=== PATIENT | female | born 1965 | race American Indian/Alaskan Native ===

== ENCOUNTER 2016-09-15 08:49 | Outpatient (CLI) | payer BC ==
--- NOTE | 2016-09-16 10:28 | Mammography Report ---
BONE DENSITY STUDY: DEFINITIONS: BMD = Bone Mineral Density T-score = BMD related to mean peak bone mass of young adult (mean expressed in Standard Deviation) Z-score = Age matched BMD expressed in SD World Health Organization (WHO) Diagnostic Criteria Normal T-score > -1 SD Osteopenia T-score between -1 and -2.4 SD Osteoporosis T-score -2.5 SD or below FINDINGS: The weighted average BMD of lumbar spine L1-L4 is 1.125 with a T-score of 0.7. The weighted average BMD of hip is 1.128 with a T-score of 1.5. IMPRESSION: The patient's T-score is diagnostic for normal bone density and low relative risk for fracture. NOTE: BMD is not the only risk factor for fracture; also consider factors such as the patient's age, risk of falling, previous osteoporotic fracture, family history of osteoporotic fractures, current smoker, and low body weight. Cm's triangle is a region of interest in femur, predominantly of trabecular bone. It is not a true anatomic site, and ISCD does not recommend its use clinically.
== END 2016-09-15 08:50 | disposition home or self-care (01) ==
LOC: MAMMO 08:49
PROVIDERS: ATTEND Obstetrics & Gynecology Gynecology
DX: Z13.820 Encounter for screening for osteoporosis (principal)
CPT/HCPCS: 77080

== ENCOUNTER 2016-10-16 08:32 | Outpatient (CLI) | payer BC ==
[2016-10-16 09:44] LABS: Hematocrit 37.1 % (30.3-42.9); Hemoglobin 12.1 gm/dl (10.1-14.3); Mean Corpuscular HGB Conc 33 % (30-34); Mean Corpuscular Hemoglobin 29 pg (28-32); Mean Corpuscular Volume 89 fl (79-97); Platelet Count 248 K/mm3 (140-440); Red Blood Count 4.15 M/mm3 (3.65-5.03); Red Cell Distribution Width 12.6 % (13.2-15.2); White Blood Count 6.2 K/mm3 (4.5-11.0)
[2016-10-16 10:03] LABS: Erythrocyte Sedimentation Rate 25 mm/Hr (0-20)
[2016-10-16 10:08] LABS: Alanine Aminotransferase 20 units/L (7-56); Albumin 4.2 g/dL (3.9-5); Albumin/Globulin Ratio 1.4 %; Alkaline Phosphatase 65 units/L (35-129); Anion Gap 17 mmol/L; BUN/Creatinine Ratio 18.57; Bilirubin,Total 0.2 mg/dL (0.1-1.2); Blood Urea Nitrogen 13 mg/dL (7-17); Calcium 9.8 mg/dL (8.4-10.2); Carbon Dioxide 25 mmol/L (22-30); Chloride 103.2 mmol/L (98-107); Cholesterol 203 mg/dL (50-199); Glucose 130 mg/dL (65-100); HDL Cholesterol 71 mg/dL (40-59); LDL Cholesterol,Direct 111 mg/dL (50-130); Potassium 4.1 mmol/L (3.6-5.0); Sodium 141 mmol/L (137-145); Total Protein 7.2 g/dL (6.3-8.2); Triglycerides 109 mg/dL (2-149)
[2016-10-18 17:47] LABS: Vitamin D, 25-OH, Total 11 ng/mL (30-100)
== END 2016-10-16 08:33 | disposition home or self-care (01) ==
LOC: LAB 08:32
PROVIDERS: ATTEND Internal Medicine Hematology & Oncology
DX: E11.9 Type 2 diabetes mellitus without complications (principal); I95.9 Hypotension, unspecified; N95.1 Menopausal and female climacteric states; L65.9 Nonscarring hair loss, unspecified
CPT/HCPCS: 36415; 80053; 80061; 82306; 82607; 83036; 84439; 84443; 85027; 85652

== ENCOUNTER 2016-10-29 07:02 | Outpatient (CLI) | payer BC ==
[2016-10-29 08:30] LABS: Blood Urea Nitrogen 15 mg/dL (7-17)
--- NOTE | 2016-10-29 11:33 | Magnetic Resonance Report ---
MRI of the right and left hips without contrast. History: Bilateral hip pain. Findings: Coronal T1 weighted, T2-weighted, inversion recovery images, and axial and sagittal proton density images with fat saturation were used in the study. Findings: The contour of the femoral heads is normal bilaterally. The joint spaces are also normal. There is no signal abnormality within the femoral heads or periarticular region of the acetabulum. There is no evidence of joint effusion. No soft tissue masses or fluid collections are seen. Impression: Normal study. There is no evidence of avascular necrosis or other significant findings.
--- NOTE | 2016-10-29 11:40 | Magnetic Resonance Report ---
MRI of the lumbar spine with and without contrast. History: Low back pain. Procedure: Sagittal T1-weighted, T2-weighted, inversion recovery images, axial T1 and T2-weighted images, and post gadolinium sagittal and axial T1-weighted images with fat saturation. Findings: The vertebral body heights are normal. A transitional vertebra is present with lumbarization of S1. Alignment is normal throughout the lumbar spine. The signal within the intervertebral discs appears normal. There is no evidence of disc bulge or herniation. No spinal stenosis is seen. The facet joints appear normal. No intradural abnormalities are seen. After contrast, there are no areas of abnormal enhancement. Impression: Normal study.
== END 2016-10-29 07:03 | disposition home or self-care (01) ==
LOC: MRI 07:02
PROVIDERS: ATTEND Internal Medicine Hematology & Oncology
DX: M25.551 Pain in right hip (principal); M54.5 Low back pain; L65.9 Nonscarring hair loss, unspecified; E11.9 Type 2 diabetes mellitus without complications; I10 Essential (primary) hypertension; Z90.710 Acquired absence of both cervix and uterus
CPT/HCPCS: 36415; 72158; 73721; 82565; 84520; A9577

== ENCOUNTER 2016-12-29 07:15 | Emergency (ER) | payer OTHER, BC ==
[2016-12-29 07:29] VITALS: BP 150/86
[2016-12-29] MEDS ORDERED: MOTRIN PO ONE (07:58)
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
--- NOTE | 2016-12-29 09:04 | XRay Report ---
LUMBOSACRAL SPINE, 3 VIEWS: History: Back pain Findings: The vertebral bodies, disk spaces and posterior elements are intact. No compression deformity or malalignment. The SI joints are symmetric and unremarkable. Impression: 1. No evidence for acute injury to the lumbar spine.
== END 2016-12-29 09:11 | disposition home or self-care (01) ==
LOC: ED 07:15
DX: S39.012A Strain of muscle, fascia and tendon of lower back, initial encounter (principal); S13.4XXA Sprain of ligaments of cervical spine, initial encounter; I10 Essential (primary) hypertension; E11.9 Type 2 diabetes mellitus without complications; Z88.8 Allergy status to other drugs, medicaments and biological substances; V49.49XA Driver injured in collision with other motor vehicles in traffic accident, initial encounter; Y93.89 Activity, other specified; Y99.8 Other external cause status; Y92.488 Other paved roadways as the place of occurrence of the external cause
CPT/HCPCS: 72072; 72100

== ENCOUNTER 2017-07-06 09:12 | Emergency (ER) | payer BC ==
[2017-07-06 10:10] VITALS: BP 164/94
--- NOTE | 2017-07-06 13:58 | Emergency Department Report ---
ED ENT HPI - General Chief complaint: Upper Respiratory Infection Stated complaint: ALLERGIC REACTION Time Seen by Provider: 07/06/17 13:46 Source: patient Mode of arrival: Ambulatory Limitations: No Limitations - History of Present Illness Initial comments: 51-year-old female past medical history diabetes, hypertension presents with complaint 8 days of left-sided lower lip swelling worsening, painful to touch, swollen. Patient also complaining of left sided cheek discomfort and sinus congestion. Patient is awake alert and oriented 3 no audible wheezing or stridor fully lucid. Denies any significant fever or chills. Denies any purulent drainage from mouth nose or ears. Denies sore throat or earache. Does state the pain radiates up the left ear. States she has sinus pressure and discomfort. Denies purulent drainage from lip. MD complaint: other Onset/Timin -: days(s) Location: lower lip Severity: moderate Severity scale (0 -10): 6 Quality: aching Improves with: none Worsens with: none - Related Data Home Medications Medication Instructions Recorded Confirmed Last Taken Metformin HCl [metFORMIN ER] 500 mg PO BID 07/11/14 06/24/15 06/23/15 20:00 500 MG Metoprolol [Lopressor TAB] 1 tab PO BID 09/12/14 06/24/15 06/24/15 04:30 1 TAB Previous Rx's Medication Instructions Recorded Last Taken Type Cyclobenzaprine HCl [Flexeril 5 MG 5 mg PO TID #15 tab 12/29/16 Unknown Rx TAB] Ibuprofen [Motrin 600 MG tab] 600 mg PO Q8H PRN #15 tablet 12/29/16 Unknown Rx Amoxicillin/K Clav Tab [Augmentin 1 tab PO Q12HR #14 tab 07/06/17 Unknown Rx 875 mg] Ibuprofen [Motrin] 800 mg PO Q8HR PRN #30 tablet 07/06/17 Unknown Rx Loratadine [Claritin] 10 mg PO DAILY PRN #30 tablet 07/06/17 Unknown Rx Valacyclovir HCl [Valtrex] 2,000 mg PO Q12H #4 tablet 07/06/17 Unknown Rx Allergies Allergy/AdvReac Type Severity Reaction Status Date / Time Iodinated Contrast- Oral and Allergy Severe Angioedema; Verified 12/29/16 07:24 IV Dye N&V [Iodinated Contrast Media - IV Dye] ED Dental HPI - General Chief complaint: Upper Respiratory Infection Stated complaint: ALLERGIC REACTION Time Seen by Provider: 07/06/17 13:46 Source: patient Mode of arrival: Ambulatory Limitations: No Limitations - Related Data Home Medications Medication Instructions Recorded Confirmed Last Taken Metformin HCl [metFORMIN ER] 500 mg PO BID 07/11/14 06/24/15 06/23/15 20:00 500 MG Metoprolol [Lopressor TAB] 1 tab PO BID 09/12/14 06/24/15 06/24/15 04:30 1 TAB Previous Rx's Medication Instructions Recorded Last Taken Type Cyclobenzaprine HCl [Flexeril 5 MG 5 mg PO TID #15 tab 12/29/16 Unknown Rx TAB] Ibuprofen [Motrin 600 MG tab] 600 mg PO Q8H PRN #15 tablet 12/29/16 Unknown Rx Amoxicillin/K Clav Tab [Augmentin 1 tab PO Q12HR #14 tab 07/06/17 Unknown Rx 875 mg] Ibuprofen [Motrin] 800 mg PO Q8HR PRN #30 tablet 07/06/17 Unknown Rx Loratadine [Claritin] 10 mg PO DAILY PRN #30 tablet 07/06/17 Unknown Rx Valacyclovir HCl [Valtrex] 2,000 mg PO Q12H #4 tablet 07/06/17 Unknown Rx Allergies Allergy/AdvReac Type Severity Reaction Status Date / Time Iodinated Contrast- Oral and Allergy Severe Angioedema; Verified 12/29/16 07:24 IV Dye N&V [Iodinated Contrast Media - IV Dye] ED Review of Systems ROS: Stated complaint: ALLERGIC REACTION Other details as noted in HPI Constitutional: denies: chills, fever Eyes: denies: eye pain, eye discharge, vision change ENT: as per HPI, congestion (bilateral sinus tenderness and congestion), other ( left lower lip swelling 8 days, painful). denies: ear pain, throat pain Respiratory: denies: cough, shortness of breath, wheezing Cardiovascular: denies: chest pain, palpitations Endocrine: no symptoms reported Gastrointestinal: denies: abdominal pain, nausea, diarrhea Genitourinary: denies: urgency, dysuria, discharge Musculoskeletal: denies: back pain, joint swelling, arthralgia Skin: denies: rash, lesions Neurological: denies: headache, weakness, paresthesias Psychiatric: denies: anxiety, depression Hematological/Lymphatic: denies: easy bleeding, easy bruising ED Past Medical Hx - Past Medical History Hx Hypertension: Yes Hx Congestive Heart Failure: No Hx Diabetes: Yes (pt states she is pre diabetic) Hx Asthma: No Hx COPD: No Hx HIV: No - Surgical History Additional Surgical History: . hysterectomy - Social History Smoking Status: Never Smoker Substance Use Type: None - Medications Home Medications: Home Medications Medication Instructions Recorded Confirmed Last Taken Type Metformin HCl [metFORMIN ER] 500 mg PO BID 07/11/14 06/24/15 06/23/15 20:00 History 500 MG Metoprolol [Lopressor TAB] 1 tab PO BID 09/12/14 06/24/15 06/24/15 04:30 History 1 TAB Cyclobenzaprine HCl [Flexeril 5 MG 5 mg PO TID #15 tab 12/29/16 Unknown Rx TAB] Ibuprofen [Motrin 600 MG tab] 600 mg PO Q8H PRN #15 tablet 12/29/16 Unknown Rx Amoxicillin/K Clav Tab [Augmentin 1 tab PO Q12HR #14 tab 07/06/17 Unknown Rx 875 mg] Ibuprofen [Motrin] 800 mg PO Q8HR PRN #30 tablet 07/06/17 Unknown Rx Loratadine [Claritin] 10 mg PO DAILY PRN #30 tablet 07/06/17 Unknown Rx Valacyclovir HCl [Valtrex] 2,000 mg PO Q12H #4 tablet 07/06/17 Unknown Rx ED Physical Exam - General Limitations: No Limitations General appearance: alert, in no apparent distress - Head Head exam: Present: atraumatic, normocephalic - Eye Eye exam: Present: normal appearance, PERRL, EOMI - ENT ENT exam: Present: mucous membranes moist, other (bilateral frontal sinus tenderness on percussion) - Expanded ENT Exam Expanded Mouth exam: Present: other (left lower lip swelling. Possible abscess) Throat exam: Positive: normal inspection (oropharynx is open and patent no intraoral lesions) - Neck Neck exam: Present: normal inspection, full ROM - Respiratory Respiratory exam: Present: normal lung sounds bilaterally. Absent: respiratory distress - Cardiovascular Cardiovascular Exam: Present: regular rate, normal rhythm. Absent: systolic murmur, diastolic murmur, rubs, gallop - GI/Abdominal GI/Abdominal exam: Present: soft, normal bowel sounds - Extremities Exam Extremities exam: Present: normal inspection - Back Exam Back exam: Present: normal inspection - Neurological Exam Neurological exam: Present: alert, oriented X3 - Psychiatric Psychiatric exam: Present: normal affect, normal mood - Skin Skin exam: Present: warm, dry, intact, normal color. Absent: rash ED Course Vital Signs 07/06/17 10:04 Temperature 99.1 F Pulse Rate 77 Respiratory 20 Rate Blood Pressure 164/94 O2 Sat by Pulse 98 Oximetry ED Medical Decision Making - Medical Decision Making A/P: Lower lip infection, sinusitis 1-case discussed with Dr. Carmona also examine the patient. As per Dr. Carmona this is herpetic concha and patient should be treated for oral herpes infection. Dr. Carmona and instructed me to not perform incision and drainage. He informed the patient to use warm compresses. 2-as patient does have sinus tenderness and congestion will give her antihistamines and course of Augmentin 3-follow up with primary care doctor and ENT Critical care attestation.: If time is entered above; I have spent that time in minutes in the direct care of this critically ill patient, excluding procedure time. ED Disposition Clinical Impression: Infection of lip Sinusitis Qualifiers: Sinusitis location: other Chronicity: acute Recurrence: non-recurrent Qualified Code(s): J01.80 - Other acute sinusitis Disposition: DC- TO HOME OR SELFCARE Is pt being admited?: No Does the pt Need Aspirin: No Condition: Stable Instructions: Sinusitis (ED), Oral Herpes Simplex Virus Infections (ED), Acute Bacterial Rhinosinusitis (ED) Prescriptions: Amoxicillin/K Clav Tab [Augmentin 875 mg] 1 tab PO Q12HR #14 tab Ibuprofen [Motrin] 800 mg PO Q8HR PRN #30 tablet PRN Reason: Pain Loratadine [Claritin] 10 mg PO DAILY PRN #30 tablet PRN Reason: Congestion Valacyclovir HCl [Valtrex] 2,000 mg PO Q12H #4 tablet Referrals: [facility] [Outside] - 3-5 Days [facility] [Outside] - 3-5 Days [facility] [Provider Group] - [facility] - 3-5 Days Forms: Work/School Release Form(ED) Time of Disposition: 15:02
[2017-07-06] MEDS ORDERED: BENADRYL PO ONE (14:11)
[2017-07-06] MEDS ORDERED: MOTRIN PO ONE (14:11)
[2017-07-06] MEDS ORDERED: XYLOCAINE 2% INFILTRATI ONE (14:11)
--- NOTE | 2017-07-06 14:53 | Cat Scan Report ---
CT SINUSES WITHOUT CONTRAST: HISTORY: Left sided sinus pain. TECHNIQUE: Helical CT with sagittal and coronal reformatted images. The visualized sinus groups are well aerated. The ostiomeatal units are normal and patent bilaterally. The nasal septum is midline. The nasal turbinates are symmetrical. There is no evidence of blaine bullosa or sinusitis. CONCLUSION: Negative sinus CT.
== END 2017-07-06 15:44 | disposition home or self-care (01) ==
LOC: ED 09:12
DX: K13.0 Diseases of lips (principal); J01.80 Other acute sinusitis; I10 Essential (primary) hypertension; E11.9 Type 2 diabetes mellitus without complications; Z88.8 Allergy status to other drugs, medicaments and biological substances
CPT/HCPCS: 70486

== ENCOUNTER 2017-07-29 13:40 | Outpatient (CLI) | payer BC ==
--- NOTE | 2017-07-29 18:36 | XRay Report ---
FINAL REPORT PROCEDURE: XR SPINE LUMBOSACRAL 4+V TECHNIQUE: Lumbar spine radiographs, including AP, lateral, oblique, and lumbosacral spot views. HISTORY: LOWER BACK PAIN COMPARISON: No prior studies are available for comparison. FINDINGS: The vertebral body heights and alignment are maintained. Degenerative disc changes are noted predominantly in the lower thoracic spine. No scoliosis. Disc spaces in the lumbar spine are preserved. IMPRESSION: No acute abnormality. Mild degenerative changes as above
--- NOTE | 2017-07-29 18:37 | XRay Report ---
FINAL REPORT PROCEDURE: XR HIPS BILAT 2V W/PELVIS TECHNIQUE: Bilateral hip radiographs, 2 views each, including AP view of the pelvis. HISTORY: B/L HIP/LOWER BACK PAIN COMPARISON: No prior studies are available for comparison. FINDINGS: No acute fracture is seen. Hip joint spaces are preserved. No focal osseous lesion is seen. Sacroiliac joints are unremarkable in appearance. IMPRESSION: Unremarkable exam
== END 2017-07-29 13:41 | disposition home or self-care (01) ==
LOC: XRAY 13:40
PROVIDERS: ATTEND Internal Medicine Hematology & Oncology
DX: M47.896 Other spondylosis, lumbar region (principal); M25.551 Pain in right hip; M25.552 Pain in left hip
CPT/HCPCS: 72110; 73521

== ENCOUNTER 2018-04-27 11:48 | Outpatient (CLI) | payer BC ==
--- NOTE | 2018-04-27 12:12 | XRay Report ---
AP ABDOMEN: HISTORY: Pain. There is moderate stool throughout the colon and rectum. The abdominal gas pattern is unremarkable. No masses or organomegaly is identified and there is no gross evidence of free air or fluid. No significant soft tissue calcifications are noted. IMPRESSION: Fecal retention.
== END 2018-04-27 11:49 | disposition home or self-care (01) ==
LOC: XRAY 11:48
PROVIDERS: ATTEND Internal Medicine Hematology & Oncology
DX: K59.00 Constipation, unspecified (principal); E11.9 Type 2 diabetes mellitus without complications; I10 Essential (primary) hypertension; E78.00 Pure hypercholesterolemia, unspecified
CPT/HCPCS: 74018

== ENCOUNTER 2018-08-10 14:11 | Outpatient (CLI) | payer BC ==
[2018-08-10 14:44] LABS: Blood Urea Nitrogen 16 mg/dL (7-17)
== END 2018-08-10 14:12 | disposition home or self-care (01) ==
LOC: LAB 14:11
PROVIDERS: ATTEND Internal Medicine Hematology & Oncology
DX: R19.00 Intra-abdominal and pelvic swelling, mass and lump, unspecified site (principal); I10 Essential (primary) hypertension; E78.00 Pure hypercholesterolemia, unspecified; E11.9 Type 2 diabetes mellitus without complications; Z90.710 Acquired absence of both cervix and uterus
CPT/HCPCS: 36415; 82565; 84520

== ENCOUNTER 2018-08-16 07:00 | Outpatient (CLI) | payer BC ==
--- NOTE | 2018-08-16 14:38 | Magnetic Resonance Report ---
MRI OF THE BRAIN WITHOUT CONTRAST: HISTORY: M62.838, muscle spasm PROCEDURE: Multiplanar, multisequence MR imaging of the brain without IV contrast was performed. FINDINGS: Minimal nonspecific T2 signal abnormalities are identified in the white matter. Otherwise, the brain parenchyma signal intensity and its handy white interface are within normal limits on all sequences. No evidence for acute ischemia, hemorrhage or mass. No chronic infarct or extra-axial fluid collection. The midline structures are central. The basal cisterns are patent. Normal ventricular size. The orbital cavities and sella turcica demonstrate no abnormality. The visualized paranasal sinuses and mastoid air cells are well aerated. IMPRESSION: Unremarkable non-enhanced MRI of the brain.
--- NOTE | 2018-08-16 14:40 | Magnetic Resonance Report ---
MR CERVICAL SPINE WITHOUT CONTRAST HISTORY: M62.838, muscle spasm. TECHNIQUE: Axial T2 and T2 gradient. Sagittal T1, T2 and STIR. COMPARISON: None. FINDINGS: The cervical spinal cord is normal size and signal intensity throughout. No abnormal intramedullary signal is detected. Normal height and alignment of the cervical vertebral bodies. Normal bone marrow signal. The intervertebral disc spaces are within normal limits. The facet joints are in appropriate relationship. No significant joint pathology or hypertrophic changes. The paraspinal soft tissues are within normal limits. C2-3: Normal. C3-4: Normal. C4-5: Normal. C5-6: Normal. C6-7: Normal. C7-T1: Normal. IMPRESSION: MRI of cervical spine within normal limits.
== END 2018-08-16 07:01 | disposition home or self-care (01) ==
LOC: MRI 07:00
PROVIDERS: ATTEND Internal Medicine Hematology & Oncology
DX: M62.838 Other muscle spasm (principal); R19.07 Generalized intra-abdominal and pelvic swelling, mass and lump; E78.00 Pure hypercholesterolemia, unspecified; I10 Essential (primary) hypertension; E11.9 Type 2 diabetes mellitus without complications
CPT/HCPCS: 70551; 72141

== ENCOUNTER 2018-08-17 09:09 | Outpatient (CLI) | payer BC ==
--- NOTE | 2018-08-17 11:55 | Cat Scan Report ---
CT ABDOMEN WITHOUT CONTRAST HISTORY: Generalized intra-abdominal and pelvic swelling, mass lump. Evaluate for aneurysm. TECHNIQUE: Helical CT without IV contrast. Sagittal and coronal reformatted images. The patient reported an IV contrast allergy so IV contrast was not administered. FINDINGS: Compared to the CT of abdomen and pelvis with contrast dated 10/01/14. The liver is normal size and attenuation. No obvious parenchymal disease or mass. The biliary system, pancreas, spleen, kidneys and adrenal glands are unremarkable. The aorta is within normal limits. No aneurysm. There is moderate stool throughout the length of the colon. Small bowel loops are grossly normal. Normal appendix. No evidence for suspicious mass, adenopathy or fluid collection. The bony structures are within normal limits. IMPRESSION: No suspicious mass, adenopathy or fluid collection is identified. Normal aorta. Constipation.
== END 2018-08-17 09:10 | disposition home or self-care (01) ==
LOC: CT 09:09
PROVIDERS: ATTEND Internal Medicine Hematology & Oncology
DX: K59.00 Constipation, unspecified (principal); M62.838 Other muscle spasm; E11.9 Type 2 diabetes mellitus without complications; E78.00 Pure hypercholesterolemia, unspecified; I10 Essential (primary) hypertension; Z90.710 Acquired absence of both cervix and uterus
CPT/HCPCS: 74150

== ENCOUNTER 2018-09-13 08:39 | Outpatient (CLI) | payer BC ==
--- NOTE | 2018-09-13 11:52 | Ultrasound Report ---
ULTRASOUND ABDOMEN COMPLETE: TECHNIQUE: Transabdominal ultrasound with color Doppler interrogation. HISTORY: Other specified symptoms and signs involving the circulatory and. COMPARISON: none. FINDINGS: LIVER: Normal. BILIARY SYSTEM: Normal. PANCREAS: Normal. SPLEEN: Normal. KIDNEYS: Normal. AORTA/IVC: Normal. ASCITES: None. IMPRESSION: Unremarkable exam.
== END 2018-09-13 08:40 | disposition home or self-care (01) ==
LOC: US 08:39
PROVIDERS: ATTEND Internal Medicine Hematology & Oncology
DX: R09.89 Other specified symptoms and signs involving the circulatory and respiratory systems (principal); R52 Pain, unspecified; E11.9 Type 2 diabetes mellitus without complications; E78.00 Pure hypercholesterolemia, unspecified; I10 Essential (primary) hypertension; Z90.710 Acquired absence of both cervix and uterus
CPT/HCPCS: 76700

== ENCOUNTER 2018-12-30 10:17 | Outpatient (CLI) | payer BC ==
--- NOTE | 2018-12-30 11:12 | XRay Report ---
CHEST 2 VIEWS INDICATION: Cough. COMPARISON: 08/06/2008. FINDINGS: PA and lateral chest radiographs redemonstrate normal cardiomediastinal silhouette. Clear lungs. Stable bones, including slight lower thoracic spine degenerative changes. CONCLUSION: No acute disease in the chest, stable. Thank you for the opportunity to participate in this patient's care.
== END 2018-12-30 10:18 | disposition home or self-care (01) ==
LOC: XRAY 10:17
PROVIDERS: ATTEND Internal Medicine Hematology & Oncology
DX: R05 Cough (principal); E11.9 Type 2 diabetes mellitus without complications; E78.00 Pure hypercholesterolemia, unspecified; I10 Essential (primary) hypertension
CPT/HCPCS: 71046

== ENCOUNTER 2019-01-08 14:08 | Emergency (ER) | payer BC ==
--- NOTE | 2019-01-08 14:21 | Event Note ---
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 Further treatment and workup at subsequent clinical providers discretion. Patient/guardian urged not to elope from the ED as their condition may be serious if not clinically assessed and managed. Initial orders include: UA
[2019-01-08 16:25] LABS: Bilirubin,Urine NEG (Negative); Blood,Urine NEG (Negative); Color,Urine Colorless (Yellow); Protein,Urine <15 mg/dL mg/dL (Negative); Urobilinogen,Urine < 2.0 mg/dL (<2.0); WBC,Urine < 1.0 /HPF (0.0-6.0)
--- NOTE | 2019-01-08 20:24 | Ultrasound Report ---
PROCEDURE: US PELVIC COMPLETE TECHNIQUE: Real-time transabdominal sonography in multiple planes of the pelvis was performed. The p elvic structures, especially the ovaries, were not optimally visualized. Transvaginal sonography was then performed to better evaluate the structures and/or abnormalities described below with image docu mentation. HISTORY: vaginal bleeding COMPARISONS: None . FINDINGS: Ureters and ovaries are not visualized. There is no evidence of any cystic lesion. IMPRESSION: Uterus and ovaries are not visualized consistent with known history of complete hysterec aki. Otherwise negative study. This document is electronically signed by Neftali Rush MD., January 08 2019 08:23:04 PM ET
--- NOTE | 2019-01-08 20:26 | Ultrasound Report ---
PROCEDURE: US TRANSVAGINAL TECHNIQUE: Real-time transvaginal sonography in multiple planes of the pelvis was performed with live ge documentation. HISTORY: vaginal bleeding COMPARISONS: None . FINDINGS: Ureters and ovaries are not visualized. There is no evidence of any cystic lesion. IMPRESSION: Uterus and ovaries are not visualized consistent with known history of complete hysterec aki. Otherwise negative study. This document is electronically signed by Neftali Rush MD., January 08 2019 08:23:57 PM ET
--- NOTE | 2019-01-08 21:07 | Emergency Department Report ---
ED Female HPI - General Chief complaint: Vaginal Bleeding Stated complaint: SPOT OF BLOOD IN UNDERWEAR Time Seen by Provider: 01/08/19 14:18 Source: patient Mode of arrival: Ambulatory Limitations: No Limitations - History of Present Illness Initial comments: Physical 3-year-old -[place] female with a past medical history of a total hysterectomy some years ago. Judgment department complaining of vaginal spotting 2, first episode was Wednesday she noticed when she wiped and noticed again earlier today. She reports this is not coming from her urethra or her rectum. She states that she is 100%. She was coming from the vaginal area. She cannot find the cause. Reports no pain or trauma. Denies any vaginal discharge, rashes, suspicion of an STD MD Complaint: vaginal bleeding Radiation: non-radiating Severity scale (0 -10): 0 Improves with: none Worsens with: none Are you Now?: No Associated Symptoms: vaginal bleeding. denies: nausea/vomiting, fever/chills, loss of appetite, dysuria, rash - Related Data Home Medications Medication Instructions Recorded Confirmed Last Taken Metformin HCl [metFORMIN ER] 500 mg PO BID 07/11/14 06/24/15 06/23/15 20:00 500 MG Metoprolol [Lopressor TAB] 1 tab PO BID 09/12/14 06/24/15 06/24/15 04:30 1 TAB Previous Rx's Medication Instructions Recorded Last Taken Type Cyclobenzaprine HCl [Flexeril 5 MG 5 mg PO TID #15 tab 12/29/16 Unknown Rx TAB] Ibuprofen [Motrin 600 MG tab] 600 mg PO Q8H PRN #15 tablet 12/29/16 Unknown Rx Amoxicillin/K Clav Tab [Augmentin 1 tab PO Q12HR #14 tab 07/06/17 Unknown Rx 875 mg] Ibuprofen [Motrin] 800 mg PO Q8HR PRN #30 tablet 07/06/17 Unknown Rx Loratadine [Claritin] 10 mg PO DAILY PRN #30 tablet 07/06/17 Unknown Rx Valacyclovir HCl [Valtrex] 2,000 mg PO Q12H #4 tablet 07/06/17 Unknown Rx Allergies Allergy/AdvReac Type Severity Reaction Status Date / Time Iodinated Contrast- Oral and Allergy Severe Angioedema; Verified 01/08/19 14:11 IV Dye N&V [Iodinated Contrast Media - IV Dye] ED Review of Systems ROS: Stated complaint: SPOT OF BLOOD IN UNDERWEAR Other details as noted in HPI Comment: All other systems reviewed and negative ED Past Medical Hx - Past Medical History Hx Hypertension: Yes Hx Congestive Heart Failure: No Hx Diabetes: Yes Hx Asthma: No Hx COPD: No Hx HIV: No - Surgical History Additional Surgical History: . hysterectomy - Social History Smoking Status: Never Smoker Substance Use Type: None - Medications Home Medications: Home Medications Medication Instructions Recorded Confirmed Last Taken Type Metformin HCl [metFORMIN ER] 500 mg PO BID 07/11/14 06/24/15 06/23/15 20:00 History 500 MG Metoprolol [Lopressor TAB] 1 tab PO BID 09/12/14 06/24/15 06/24/15 04:30 History 1 TAB Cyclobenzaprine HCl [Flexeril 5 MG 5 mg PO TID #15 tab 12/29/16 Unknown Rx TAB] Ibuprofen [Motrin 600 MG tab] 600 mg PO Q8H PRN #15 tablet 12/29/16 Unknown Rx Amoxicillin/K Clav Tab [Augmentin 1 tab PO Q12HR #14 tab 07/06/17 Unknown Rx 875 mg] Ibuprofen [Motrin] 800 mg PO Q8HR PRN #30 tablet 07/06/17 Unknown Rx Loratadine [Claritin] 10 mg PO DAILY PRN #30 tablet 07/06/17 Unknown Rx Valacyclovir HCl [Valtrex] 2,000 mg PO Q12H #4 tablet 07/06/17 Unknown Rx ED Physical Exam - General Limitations: No Limitations General appearance: alert, in no apparent distress - Head Head exam: Present: atraumatic, normocephalic - Eye Eye exam: Present: normal appearance - ENT ENT exam: Present: mucous membranes moist - Neck Neck exam: Present: normal inspection - Respiratory Respiratory exam: Present: normal lung sounds bilaterally. Absent: respiratory distress - Cardiovascular Cardiovascular Exam: Present: regular rate, normal rhythm. Absent: systolic murmur, diastolic murmur, rubs, gallop - GI/Abdominal GI/Abdominal exam: Present: soft, normal bowel sounds - Rectal Rectal exam: Present: normal inspection - External exam: Present: normal external exam Speculum exam: Present: normal speculum exam Bi-manual exam: Present: normal bi-manual exam - Extremities Exam Extremities exam: Present: normal inspection, full ROM, normal capillary refill - Back Exam Back exam: Present: normal inspection. Absent: CVA tenderness (R), CVA tenderness (L) - Neurological Exam Neurological exam: Present: alert, oriented X3, CN II-XII intact, normal gait - Psychiatric Psychiatric exam: Present: normal affect, normal mood - Skin Skin exam: Present: warm, dry, intact, normal color. Absent: rash ED Course Vital Signs 01/08/19 14:19 Temperature 97.9 F Pulse Rate 66 Respiratory 18 Rate Blood Pressure 177/97 O2 Sat by Pulse 100 Oximetry ED Medical Decision Making - Medical Decision Making 53-year-old female with a hysterectomy. Pain free with reported vaginal bleeding. No hematuria on examination. Ultrasound shows no obvious causes of vaginal bleeding. She reports having had some pain quadrant, almost not present. No bloating. Abdomen is soft. She is having normal digestion. No presyncope, no fevers, chills, sweats. No dysuria, no hematuria, no hematochezia. She reports no weight loss or fevers. Discussed the need to follow with QUALITY CONTROL ASSISTANT for reevaluation of this vaginal bleeding which further conditions may be made to rest, refrain from sexual activity until she follows up. We will these lesions were appreciated on her pelvic examination no suspicion for any STDs Critical care attestation.: If time is entered above; I have spent that time in minutes in the direct care of this critically ill patient, excluding procedure time. ED Disposition Clinical Impression: Vaginal bleeding Disposition: DC-01 TO HOME OR SELFCARE Is pt being admited?: No Does the pt Need Aspirin: No Condition: Stable Additional Instructions: Completed should've HER QUALITY CONTROL ASSISTANT as we discussed to further evaluate for vaginal spotting. Ultrasound and urinalysis were normal. Referrals: PEPPER CORREIA MD [Primary Care Provider] - 3-5 Days
[2019-01-08 21:14] VITALS: BP 175/88
== END 2019-01-08 21:23 | disposition home or self-care (01) ==
LOC: ED 14:08 → EEVIPCON 14:08 → ED 21:23
DX: N93.9 Abnormal uterine and vaginal bleeding, unspecified (principal); I10 Essential (primary) hypertension; E11.9 Type 2 diabetes mellitus without complications; Z90.710 Acquired absence of both cervix and uterus; Z79.899 Other long term (current) drug therapy; Z91.041 Radiographic dye allergy status
CPT/HCPCS: 76830; 76856; 81001

== ENCOUNTER 2019-01-10 07:24 | Outpatient (CLI) | payer BC ==
[2019-01-10 10:00] LABS: Blood Urea Nitrogen 20 mg/dL (7-17)
--- NOTE | 2019-01-10 11:36 | Magnetic Resonance Report ---
MR MRA/MRV ABDOMEN WITH AND WITHOUT CONTRAST HISTORY: Abdominal pain. TECHNIQUE: Multisequence, multiplanar MRI. 3-dimensional MRA following IV gadolinium. Three-dimensional reconstructed images. FINDINGS: Heart size is normal. The visualized thoracic and abdominal aorta are normal caliber throughout. There is no evidence for atherosclerotic disease, stenosis, dissection or aneurysm. The celiac axis, superior mesenteric artery, inferior mesenteric artery and bilateral single renal arteries are widely patent with less than 20% stenosis. The visualized iliac veins, IVC, portal venous system and hepatic veins are widely patent. Signal characteristics of the abdominal viscera are within normal limits. No mass, inflammation or ascites. IMPRESSION: Normal MRA/MRV of the abdomen.
== END 2019-01-10 07:25 | disposition home or self-care (01) ==
LOC: MRI 07:24
PROVIDERS: ATTEND Internal Medicine Hematology & Oncology
DX: R19.8 Other specified symptoms and signs involving the digestive system and abdomen (principal); I10 Essential (primary) hypertension; E78.00 Pure hypercholesterolemia, unspecified; E11.9 Type 2 diabetes mellitus without complications; Z90.710 Acquired absence of both cervix and uterus
CPT/HCPCS: 36415; 82565; 84520; C8902; 74185

== ENCOUNTER 2021-08-18 12:16 | Outpatient (CLI) | payer OTHER ==
--- NOTE | 2021-08-18 13:54 | XRay Report ---
CHEST 2 VIEWS INDICATION / CLINICAL INFORMATION: PAIN. COMPARISON: 12/30/2018 FINDINGS: SUPPORT DEVICES: None. HEART / MEDIASTINUM: No significant abnormality. LUNGS / PLEURA: No significant pulmonary or pleural abnormality. No pneumothorax. ADDITIONAL FINDINGS: No significant additional findings. IMPRESSION: 1. No acute findings. Signer Name: Wai Berger MD Signed: 08/18/2021 1:50 PM Workstation Name: [id number]
--- NOTE | 2021-08-18 14:49 | XRay Report ---
NECK SOFT TISSUE 2 VIEW(S) INDICATION / CLINICAL INFORMATION: PAIN COMPARISON: None available. FINDINGS: EPIGLOTTIS: No significant abnormality. RETROPHARYNGEAL SOFT TISSUES: No significant abnormality. AIRWAY: No significant abnormality. RADIOPAQUE FOREIGN BODY: None. SKELETAL SYSTEM: No significant abnormality. ADDITIONAL FINDINGS: None. IMPRESSION: No significant abnormality. Signer Name: Quinn Cueva MD Signed: 08/18/2021 2:44 PM Workstation Name: [id number]
== END 2021-08-18 12:17 | disposition home or self-care (01) ==
LOC: XRAY 12:16
PROVIDERS: ATTEND Internal Medicine Hematology & Oncology
DX: R07.9 Chest pain, unspecified (principal); M54.2 Cervicalgia
CPT/HCPCS: 70360; 71046